=== PATIENT | male | born 1985 | race Two or more races ===

== ENCOUNTER 2019-06-07 09:00 | Emergency (ER) | payer OTHER ==
[2019-06-07] MEDS ORDERED: CLONIDINE HCL 0.1MG/24H PTWK 1 EA PATCH TD SCH (09:30)
[2019-06-07] MEDS ORDERED: ONDANSETRON 4 MG TAB.RAPDIS PO ONE (09:30)
[2019-06-07] MEDS ORDERED: ONDANSETRON 4 MG TAB.RAPDIS ONE (09:35)
== END 2019-06-07 09:53 ==
DX: F11.10 Opioid abuse, uncomplicated (principal); R11.2 Nausea with vomiting, unspecified
CPT/HCPCS: 99283; Q0162

== ENCOUNTER 2021-11-02 15:34 | Emergency (ER) | payer OTHER ==
[~2021-11-02] VITALS: Ht 175.3 cm; Wt 72.6 kg
[2021-11-02 15:34] VITALS: BP 116/65
[2021-11-02] MEDS ORDERED: KETOROLAC TROMETHAMINE INJ 30 MG/ML VIAL ONE (15:52)
[2021-11-02] MEDS ORDERED: OXYMETAZOLINE HCL NASAL SPRAY 30 ML BOTTLE NS ONE ×2 (15:52→16:00)
[2021-11-02] MEDS ORDERED: KETOROLAC TROMETHAMINE INJ 30 MG/ML VIAL IM ONE (16:00)
== END 2021-11-02 16:07 | disposition home or self-care (01) ==
LOC: ER 15:40
DX: S70.212A Abrasion, left hip, initial encounter (principal); S00.31XA Abrasion of nose, initial encounter; R04.0 Epistaxis; Y08.89XA Assault by other specified means, initial encounter; Y93.89 Activity, other specified; Y92.89 Other specified places as the place of occurrence of the external cause; Y99.8 Other external cause status
CPT/HCPCS: 96372; 99283; J1885